=== PATIENT | male | born 1945 | race African-American/Black ===

== ENCOUNTER 2017-01-18 21:15 | Inpatient (IN) ==
[2017-01-18] MEDS ORDERED: THIAMINE INJ 100 MG, FOLIC ACID INJ 1 MG, MAGNESIUM SULF INJ 2 GM, MULTIVITAMIN INJ 10 ... IV ONE (21:47)
--- NOTE | 2017-01-18 21:52 | Emergency Department Note ---
Arrival - Arrival Chief Complaint: Altered Mental Status Stated Complaint: altered mental status ED Nursing Triage Note: pt to room via metro stretcher. family called ems stating pt was altered. pt has had 6 tia's in the past. unsure of baseline. no family. pt following commands, pt aaox2.pupils pinpoint , 0.4 of narcan given per ems. pt is incontinent of bladder upon arrival Mode of Arrival: Stretcher Limitations: Altered Mental Status Source: Family Time Seen by Provider: 01/18/17 21:47 - History of Present Illness HPI Narrative: This 71-year-old black male presents inebriated smelling of alcohol last seen by the family in his normal state of health earlier this morning who now presents confused and lethargic. However, the patient is oriented to person and place but not time. The family called EMS because the patient when he was found this evening was incontinent with slurred speech and laying on the couch confused. Currently he does not appear in any medical distress. Onset (ago): unknown Allergies/Adverse Reactions: Allergies Allergy/AdvReac Type Severity Reaction Status Date / Time No Known Allergies Allergy Unverified 01/18/17 21:56 Review of System - Review of System 12 point system: reviewed and no additional remarkable complaints except as stated - Review of System Constitutional: Present: as per HPI Neurological: Present: as per HPI Medical,Surgical,& Family Hx - Social History Smoking Status: Unknown if ever smoked Frequency of Alcohol Use: Unknown Type of Drug Use: Unknown Exam Physical Examination: GENERAL: Well developed, well nourished disheveled inebriated black male in no acute distress. HEENT: Normocephalic. No trauma. Moist mucous membranes. EOMI. PERRLA. Bilateral bloodshot eyes ENT NML NECK: Supple. No adenopathy. CARDIAC: Regular. No murmurs. Heart rate 110 CHEST: Clear to auscultation. No respiratory distress. O2 sat 97% ABDOMEN: Soft. Nontender. Active bowel sounds. EXTREMITIES: No trauma. Normal ROM. No pedal edema. SKIN: No diaphoresis. No rash. NEURO: Alert. Oriented to person and place. Smells of alcohol. Slurred speech. Motor, sensory, vibratory grossly intact no focal deficits. Vital Signs: Vital Signs Temperature 97.0 F L 01/18/17 21:21 Pulse Rate 108 H 01/18/17 21:21 Respiratory Rate 20 01/18/17 21:21 Blood Pressure 167/94 01/18/17 21:21 O2 Sat by Pulse Oximetry 97 01/18/17 21:21 Course - Reevaluation(s) Reevaluation #1: Discussed with family it is difficult to tell if he has had a stroke or is just inebriated, And for this reason we will admit. - Consultations Consultation #1: Discussed with hospitalist service who will admit for further evaluation treatment. Results - Labs CBC & BMP: 01/18/17 22:03 01/18/17 22:03 Labs: I have reviewed the laboratory and noted the grossly normal results excepting for the blood alcohol of 387. - Impressions EKG: Sinus tachycardia at 105 with normal IL interval and QRS duration. Old inferior ID as well as poor R-wave progression anteriorly. Nonspecific ST changes. No acute injury pattern noted. - Diagnostic Findings Procedure: Chest x-ray: image reviewed by me, report reviewed by me ( Cardiomegaly otherwise negative chest), CT: image reviewed by me, report reviewed by me (Head: Evidence of multiple old injuries but no acute brain injury.) Disposition Clinical Impression: Alcohol intoxication, Altered mental status, History of recurrent TIA Case discussed with: patient's family Disposition: Still a Patient Condition: Guarded Time of Disposition: 23:08
--- NOTE | 2017-01-18 22:10 | XRay Report ---
History is altered mental status Comparison 03/24/2016 The heart is mildly enlarged No congestive failure or confluent infiltrate is seen Impression: Cardiomegaly PROCEDURE INTERPRETED AT [facility] DEPARTMENT OF RADIOLOGY Final Report Signed by: Dr. hSireen Paiz
--- NOTE | 2017-01-18 22:12 | CT Report ---
History is mental status changes, altered LOC Comparison The ventricles are normal in size There are moderate patchy and more confluent white matter low densities present with a more focal small area of chronic cortical loss in the left parietal convexity similar on the prior study. Mild patchy low density in the hdez radiata on the right is also chronic No new areas of hemorrhage or mass effect seen. No acute cortical stroke seen. Impression: Chronic ischemic changes described above The CT exam was performed using one or more of the following dose reduction techniques: Automated exposure control, adjustment of the mA and/or kV according to patient size, or use of iterative reconstruction technique. PROCEDURE INTERPRETED AT [facility] DEPARTMENT OF RADIOLOGY Final Report Signed by: Dr. Shireen Paiz
[2017-01-18 22:23] LABS: Basophils % 0.6 % (0.0-0.8); Eosinophils % 0.4 % (0.00-10.9); Hematocrit 41.1 VOL% (42.0-52.0); Hemoglobin 13.6 GM/DL (14.0-18.0); Immature Granulocytes % 0.3 %; Immature Granulocytes Absolute 0.02 #; Lymphocytes # 1.7 10*3/uL (1.4-4.0); Lymphocytes % 23.7 % (21.2-54.2); Mean Corpuscular HGB Conc 33.1 GM/DL (32-36); Mean Corpuscular Hemoglobin 30 PG (27-34); Mean Corpuscular Volume 89.3 FL (87-102); Mean Platelet Volume 9.4 FL (9.6-12.0); Monocytes # 0.2 10*3/uL (0.11-0.8); Monocytes % 3.3 % (1.7-12.7); Neutrophils % 71.7 % (38.7-73.9); Platelet Count 310 T/CUMM (130-400); Red Cell Distribution Width 15.9 % (9.3-17.3)
[2017-01-18 22:24] LABS: Apearance,Urine Slightly Hazy (Clear); Bacteria,Urine Many /HPF (Few); Bilirubin,Urine Negative (Negative); Blood, Urine Small mg/dL (Negative); Glucose,Urine (UA) Negative (Negative); Hyaline Casts,Urine 4 /LPF (0-3); Ketones,Urine Negative (Negative); Mucus,Urine Occasional /LPF (Occasional); Nitrite,Urine Negative (Negative); Protein,Urine 30 MG/DL; RBC,Urine 2 /HPF (0-4); Squamous Epithelial Cell,Urine Occasional /HPF (0-10); Urine Color Yellow (Yellow); Urine Specific Gravity 1.006 (1.001-1.035); Urine Urobilinogen < 2.0 EU/DL (0.2-1.0); WBC,Urine 39 /HPF (0-6)
[2017-01-18 22:32] LABS: Barbiturates Screen,Urine Negative (Negative); Benzodiazepines Screen,Urine Negative (Negative); Cannabinoid Screen,Urine Negative (Negative); Opiate Screen,Urine Negative (Negative); Phencyclidine Screen,Urine Negative (Negative)
[2017-01-18 22:33] LABS: PT Patient Result 10.2 SECS; Partial Thromboplastin Time 26.4 SECS (0-40)
[2017-01-18 22:41] LABS: Ammonia < 10 UMOL/L (11-32)
[2017-01-18 22:46] LABS: Troponin I Only < 0.015 NG/ML (0.00-0.045)
[2017-01-18 22:47] LABS: Alanine Aminotransferase 16 U/L (16-61); Albumin 3.4 G/DL (3.4-5.0); Alkaline Phosphatase 131 U/L (45-117); Aspartate Amino Transferase 18 U/L (0-37); Bilirubin,Total < 0.39 MG/DL (0.2-1.0); Blood Urea Nitrogen 12 MG/DL (7-18); Calcium 8.6 MG/DL (8.5-10.1); Glucose 129 MG/DL (74-106); Potassium 3.6 MMOL/L (3.5-5.1); Sodium 143 MMOL/L (136-145); Total Protein 8.2 G/DL (6.4-8.3)
[2017-01-18] MEDS ORDERED: LEVOFLOXACIN INJ 750 MG in PREMIX 1 EACH IV STA (22:50)
--- NOTE | 2017-01-18 23:21 | Hospitalist History & Physical ---
Assessment and Plan (1) Alcohol intoxication delirium Status: Acute Current Visit: Yes (2) History of TIAs Status: Acute Current Visit: Yes (3) Urinary tract infection Status: Acute Assessment and plan: Patient is so intoxicated I am reluctant to send him to a regular floor. I need him in the ICU or CCU where he can be closely watched. We will start him on IV antibiotics. Recheck his labs in the morning continue with IV fluids check alcohol level in the morning Current Visit: Yes History of Present Illness Chief complaint: Intoxication/altered mental status History of present illness: Mr. Car Gomez is a 71 year old male who was brought up to our hospital by EMS. Apparently patient has a history of TIA/strokes. The family found him this evening incontinent of urine and feces. He had slurred speech and was lying on the couch confused. He was brought up to our hospital for further evaluation. Patient had alcohol level of 386. When asked him how much he drank he just laughed. Allergies Allergy/AdvReac Type Severity Reaction Status Date / Time No Known Allergies Allergy Unverified 01/18/17 21:56 Medical,Surgical,& Family Hx - Medical History Neurology: History of: TIA - Surgical History Surgical History: noncontributory (Unable to obtain) - Family History Family History: noncontributory (Unable to obtain) - Social History Smoking Status: Unknown if ever smoked Frequency of Alcohol Use: Frequently Type of Drug Use: Unknown ROS unobtainable: due to mental status Exam - Constitutional Vitals: Period Temp Pulse Resp BP Sys/Herzog Pulse Ox Last 24 Hr 97.0 F-97.0 F 108-108 20-20 167-167/94-94 97 General appearance: over weight, disheveled, other (Intoxicated) - Head Head exam: Present: normal inspection - Eye Pupils: Present: constricted - ENT ENT exam: Present: normal exam - Neck Neck exam: Present: normal inspection - Respiratory Respiratory exam: Present: clear to auscultation bilaterally - Cardiovascular Cardiovascular exam: Present: tachycardia - GI/Abdominal GI/Abdominal exam: Present: normal bowel sounds - Extremities Exam Extremities exam: Present: edema - Back Exam Back exam: Present: normal inspection - Neurological Exam Neurological exam: Present: other (Intoxicated with slurred speech) - Skin Skin exam: Present: normal color Results - Labs CBC & BMP: 01/18/17 22:03 01/18/17 22:03
[2017-01-18] MEDS ORDERED: ACETAMINOPHEN 325 MG TABLET PO PRN (23:26)
[2017-01-18] MEDS ORDERED: ONDANSETRON 4 MG/2 ML VIAL IV PRN (23:26)
[2017-01-18] MEDS ORDERED: ALBUTEROL 2.5 MG/3 ML NEB RESP TX PRN (23:26)
[2017-01-18] MEDS ORDERED: SODIUM CHLORIDE 0.9% 1,000 ML IV SCH (23:30)
[2017-01-18] MEDS ORDERED: LEVOFLOXACIN INJ 150 ML IV ONE (23:31)
[2017-01-19] MEDS: PANTOPRAZOLE 40 MG VIAL IV SCH ×2 (00:57→20:45)
--- NOTE | 2017-01-19 05:08 | EKG Report ---
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
[2017-01-19 08:31] LABS: Ammonia < 10 UMOL/L (11-32)
[2017-01-19 08:49] LABS: Alanine Aminotransferase 16 U/L (16-61); Alkaline Phosphatase 124 U/L (45-117); Aspartate Amino Transferase 13 U/L (0-37); Bilirubin,Total < 0.39 MG/DL (0.2-1.0); Blood Urea Nitrogen 11 MG/DL (7-18); Calcium 7.9 MG/DL (8.5-10.1); Glucose 105 MG/DL (74-106); Osmolality,Calculated 286.7 MOS/KG (273-304); Potassium 3.7 MMOL/L (3.5-5.1); Sodium 145 MMOL/L (136-145); Total Protein 7.3 G/DL (6.4-8.3)
[2017-01-19] MEDS ORDERED: hydrALAZINE 20 MG/1 ML VIAL IV PRN ×2 (09:08→15:48)
--- NOTE | 2017-01-19 09:35 | Hospitalist Progress Note ---
Assessment and Plan (1) Alcohol intoxication delirium Status: Acute Assessment and plan: IV banana bag, librium PO QID, vitamin supplement, education on quit drinking. Current Visit: Yes (2) Urinary tract infection Status: Acute Assessment and plan: Continue IV levaquin Current Visit: Yes (3) Parkinson disease Status: Acute Assessment and plan: Resume home meds Current Visit: Yes (4) Cardiomegaly Status: Acute Assessment and plan: Echo today. Resume home med coreg Current Visit: Yes (5) Hypertension Status: Acute Assessment and plan: Add norvasc and lisinopril PO. Add hydralazine IVpush PRN Current Visit: Yes Hospitalist: Subjective Interval history: No overnight acute event. Feeling better but still confused. Can eat. Left hand and left forearm resting tremor. No fever, headache, chest pain or abd pain reported. Based on reviewing home meds, pt is non compliant to his medications. His last drink was 2 days ago with 1/2 pint votka. Exam - Constitutional Vitals: Period Temp Pulse Resp BP Sys/Herzog Pulse Ox Last 24 Hr 96.7 F-97.0 F 97-108 12-20 115-167/77-99 92-100 Exam: GENERAL: NAD, Awake, alert and oriented to people. HEENT: Pupils equally round and reactive to light, conjunctivae clear. Dry oral mucosa. Normal lips, teeth and gums. NECK: Supple without mass. HEART: RRR, no murmur. CHEST: Normal shape, good air movement, no retractions. CV: RRR, no murmurs, 2+ peripheral pulses LUNGS: Clear to auscultation; no rales, rhonchi, or wheezes. ABDOMEN: Soft, nontender, and no hepatosplenomegaly. SKIN: No rash or edema. LYMPH: No anterior or posterior cervical, or supraclavicular lymphadenopathy. NEURO: Resting tremor on left hand. Results - Labs CBC & BMP: 01/18/17 22:03 01/19/17 08:10 - Diagnostic Findings Procedure: Chest x-ray: report reviewed by me (Cardiomegaly)
[2017-01-19] MEDS: amLODIPine 10 MG TABLET PO SCH (09:38)
[2017-01-19] MEDS: CARVEDILOL 25 MG TABLET PO SCH ×2 (09:38→20:45)
[2017-01-19] MEDS: LISINOPRIL 20 MG TABLET PO SCH (09:38)
[2017-01-19] MEDS: ENOXAPARIN 40 MG/0.4 ML SYRINGE SUBCUT SCH (09:38)
[2017-01-19] MEDS: CLOPIDOGREL 75 MG TABLET PO SCH (09:38)
[2017-01-19] MEDS: THIAMINE 100 MG TABLET PO SCH (10:16)
[2017-01-19] MEDS: FOLIC ACID 1 MG TABLET PO SCH (10:16)
[2017-01-19] MEDS: MULTIVITAMIN (CENTRUM) TABLET PO SCH (10:16)
[2017-01-19] MEDS: THIAMINE INJ 100 MG, FOLIC ACID INJ 1 MG, MULTIVITAMIN INJ 10 ML in SODIUM CHLORIDE 0.9... IV SCH (10:47)
[2017-01-19] MEDS: chlordiazePOXIDE 10 MG CAPSULE PO SCH ×3 (13:37→20:45)
[2017-01-19] MEDS: CARBIDOPA/LEVODOPA 25-250 MG TABLET PO SCH ×2 (15:20→20:45)
[2017-01-19] MEDS: LORazepam 2 MG/1 ML VIAL IV PRN (15:25)
--- NOTE | 2017-01-19 18:24 | ECHO Report ---
Car Gomez Teddy Exam Date: 01/19/2017 10:04 Referring Physician: Technologist: Mabel Dimas Age: 71 Ht (in): 72 Wt (lb): 199 Gender: M Exam Location: [facility] Echo Indications: possible heart failure, alcohol intoxication delirium, UTI, Hx. Of TIAs BP: 167 / 99 HR: 111 Rhythm: Sinus Technical Quality: Good IMPRESSIONS Severely increased septal wall thickness. Moderate concentric left ventricular hypertrophy with diastolic dysfunction. Left ventricular ejection fraction is estimated at > 65%. 1+ increased right atrial size. Left atrial size. Mild mitral valve regurgitation. Mild aortic valve sclerosis without stenosis or regurgitation. Trace to mild tricuspid valve regurgitation. Tricuspid regurgitation velocities suggest a PAP of 15.7 mmHg + RAP. MEASUREMENTS (Male / Female) Normal Values 2D ECHO LV Diastolic Diameter PLAX 3.7 cm 4.2 - 5.9 / 3.9 - 5.3 cm LV Systolic Diameter PLAX 2.6 cm LV Fractional Shortening PLAX 29.6 % IVS Diastolic Thickness 1.9 cm 0.6 - 1.0 / 0.6 - 0.9 cm LVPW Diastolic Thickness 1.6 cm 0.6 - 1.0 / 0.6 - 0.9 cm RV Internal Dim ED PLAX 3.3 cm Aortic Root Diameter 3.1 cm LA Systolic Diameter LX 3.7 cm 3.0 - 4.0 / 2.7 - 3.8 cm DOPPLER TR Peak Velocity 198.0 cm/s TR Peak Gradient 15.7 mmHg FINDINGS Left Ventricle Severely increased septal wall thickness. Moderate concentric left ventricular hypertrophy with diastolic dysfunction. Left ventricular ejection fraction is estimated at > 65%. Right Ventricle normal right ventricular size. Right Atrium 1+ increased right atrial size. Left Atrium 2+ incr. left atrial size. Mitral Valve Mild mitral valve sclerosis. Mild mitral valve regurgitation. Aortic Valve Mild aortic valve sclerosis without stenosis or regurgitation. Tricuspid Valve Morphologically normal tricuspid valve. Trace to mild tricuspid valve regurgitation. Tricuspid regurgitation velocities suggest a PAP of 15.7 mmHg + RAP. Pulmonic Valve Morphologically normal pulmonic valve. Pericardium No pericardial effusion. Aorta Normal size aortic root and proximal ascending aorta. Stephen Nye MD (Electronically Signed) Final Date: 19 January 2017 18:22
[2017-01-19] MEDS: LURASIDONE 40 MG TABLET PO SCH (20:44)
[2017-01-19] MEDS: ATORVASTATIN 80 MG TABLET PO SCH (20:45)
[2017-01-19] MEDS: LEVOFLOXACIN INJ 500 MG in PREMIX 1 EACH IV SCH (20:53)
[2017-01-20 06:12] LABS: Basophils % 0.5 % (0.0-0.8); Eosinophils # 0.1 10*3/uL (0.0-0.87); Hematocrit 33.8 VOL% (42.0-52.0); Immature Granulocytes % 0.5 %; Immature Granulocytes Absolute 0.03 #; Lymphocytes # 1.1 10*3/uL (1.4-4.0); Lymphocytes % 17.7 % (21.2-54.2); Mean Corpuscular HGB Conc 32.8 GM/DL (32-36); Mean Corpuscular Hemoglobin 30 PG (27-34); Mean Corpuscular Volume 90.4 FL (87-102); Mean Platelet Volume 9.9 FL (9.6-12.0); Monocytes # 0.6 10*3/uL (0.11-0.8); Monocytes % 9.7 % (1.7-12.7); Neutrophils # 4.5 10*3/uL (1.4-7.4); Neutrophils % 70.6 % (38.7-73.9); Red Blood Count 3.74 MC/CUMM (3.8-5.5); White Blood Count 6.3 T/CUMM (4-12)
[2017-01-20 06:14] LABS: Hemoglobin 11.1 GM/DL (14.0-18.0); Platelet Count 213 T/CUMM (130-400)
[2017-01-20 06:32] LABS: Alanine Aminotransferase < 9 U/L (16-61); Albumin 2.6 G/DL (3.4-5.0); Alkaline Phosphatase 107 U/L (45-117); Aspartate Amino Transferase 10 U/L (0-37); Blood Urea Nitrogen 12 MG/DL (7-18); Calcium 7.5 MG/DL (8.5-10.1); Glucose 123 MG/DL (74-106); Osmolality,Calculated 283.1 MOS/KG (273-304); Potassium 3.8 MMOL/L (3.5-5.1); Sodium 142 MMOL/L (136-145); Total Protein 6.5 G/DL (6.4-8.3)
[2017-01-20] MEDS: LISINOPRIL 20 MG TABLET PO SCH (08:17)
[2017-01-20] MEDS: chlordiazePOXIDE 10 MG CAPSULE PO SCH ×4 (08:17→21:25)
[2017-01-20] MEDS: FOLIC ACID 1 MG TABLET PO SCH (08:17)
[2017-01-20] MEDS: CLOPIDOGREL 75 MG TABLET PO SCH (08:17)
[2017-01-20] MEDS: CARVEDILOL 25 MG TABLET PO SCH ×2 (08:17→21:25)
[2017-01-20] MEDS: amLODIPine 10 MG TABLET PO SCH (08:17)
[2017-01-20] MEDS: ENOXAPARIN 40 MG/0.4 ML SYRINGE SUBCUT SCH (08:17)
[2017-01-20] MEDS: THIAMINE 100 MG TABLET PO SCH (08:17)
[2017-01-20] MEDS: MULTIVITAMIN (CENTRUM) TABLET PO SCH (08:17)
[2017-01-20] MEDS: CARBIDOPA/LEVODOPA 25-250 MG TABLET PO SCH ×3 (08:19→21:25)
[2017-01-20] MEDS: THIAMINE INJ 100 MG, FOLIC ACID INJ 1 MG, MULTIVITAMIN INJ 10 ML in SODIUM CHLORIDE 0.9... IV SCH (10:30)
--- NOTE | 2017-01-20 17:37 | Hospitalist Progress Note ---
Assessment and Plan (1) Alcohol intoxication delirium Status: Acute Current Visit: Yes (2) Urinary tract infection Status: Acute Current Visit: Yes (3) Parkinson disease Status: Acute Current Visit: Yes (4) Hypertension Status: Acute Current Visit: Yes Hospitalist: Subjective Interval history: No acute events overnight. Mental status is improved. He reports that he plans to stop drinking. Possible discharge tomorrow. Exam - Constitutional Vitals: Period Temp Pulse Resp BP Sys/Herzog Pulse Ox Last 24 Hr 97.7 F-98.9 F 83-103 17-20 152-168/77-87 94-98 General appearance: over weight - Head Head exam: Present: normocephalic, atraumatic - Eye Eye exam: Present: EOMI Pupils: Present: MINGO - ENT ENT exam: Present: normal exam - Neck Neck exam: Present: normal inspection - Respiratory Respiratory exam: Present: clear to auscultation bilaterally. Absent: rhonchi, wheezes - Cardiovascular Cardiovascular exam: Present: regular rate and rhythm - GI/Abdominal GI/Abdominal exam: Present: normal bowel sounds, soft - Extremities Exam Extremities exam: Present: normal inspection - Back Exam Back exam: Present: normal inspection - Neurological Exam Neurological exam: Present: alert, oriented X3 - Psychiatric Psychiatric exam: Present: normal affect, normal mood - Skin Skin exam: Present: warm, intact Results - Labs CBC & BMP: 01/20/17 05:15 01/20/17 05:15
[2017-01-20] MEDS: PANTOPRAZOLE 40 MG VIAL IV SCH (21:24)
[2017-01-20] MEDS: ATORVASTATIN 80 MG TABLET PO SCH (21:25)
[2017-01-20] MEDS: LEVOFLOXACIN INJ 500 MG in PREMIX 1 EACH IV SCH (21:25)
[2017-01-20] MEDS: LURASIDONE 40 MG TABLET PO SCH (21:27)
[2017-01-21] MEDS: amLODIPine 10 MG TABLET PO SCH (09:42)
[2017-01-21] MEDS: THIAMINE 100 MG TABLET PO SCH (09:42)
[2017-01-21] MEDS: chlordiazePOXIDE 10 MG CAPSULE PO SCH ×4 (09:42→20:40)
[2017-01-21] MEDS: ENOXAPARIN 40 MG/0.4 ML SYRINGE SUBCUT SCH (09:42)
[2017-01-21] MEDS: FOLIC ACID 1 MG TABLET PO SCH (09:43)
[2017-01-21] MEDS: LISINOPRIL 20 MG TABLET PO SCH (09:43)
[2017-01-21] MEDS: CLOPIDOGREL 75 MG TABLET PO SCH (09:43)
[2017-01-21] MEDS: CARVEDILOL 25 MG TABLET PO SCH ×2 (09:43→20:40)
[2017-01-21] MEDS: CARBIDOPA/LEVODOPA 25-250 MG TABLET PO SCH ×3 (09:43→20:40)
[2017-01-21] MEDS: MULTIVITAMIN (CENTRUM) TABLET PO SCH (09:43)
[2017-01-21] MEDS: THIAMINE INJ 100 MG, FOLIC ACID INJ 1 MG, MULTIVITAMIN INJ 10 ML in SODIUM CHLORIDE 0.9... IV SCH (11:24)
--- NOTE | 2017-01-21 14:02 | Hospitalist Progress Note ---
Assessment and Plan (1) Alcohol intoxication delirium Status: Acute Current Visit: Yes (2) Urinary tract infection Status: Acute Assessment and plan: On levaquin Urine culture grew Klebsiella oxytoca Current Visit: Yes (3) Parkinson disease Status: Acute Current Visit: Yes (4) Hypertension Status: Acute Assessment and plan: Home medications Current Visit: Yes Hospitalist: Subjective Interval history: No acute events overnight. Patient still intermittently confused. Oriented to person and place only. Exam - Constitutional Vitals: Period Temp Pulse Resp BP Sys/Herzog Pulse Ox Last 24 Hr 97.4 F-98.9 F 82-90 17-20 148-174/79-95 94-98 General appearance: over weight - Head Head exam: Present: normocephalic, atraumatic - Eye Eye exam: Present: EOMI Pupils: Present: MINGO - ENT ENT exam: Present: normal exam - Neck Neck exam: Present: normal inspection - Respiratory Respiratory exam: Present: clear to auscultation bilaterally. Absent: wheezes - Cardiovascular Cardiovascular exam: Present: regular rate and rhythm - GI/Abdominal GI/Abdominal exam: Present: normal bowel sounds, soft. Absent: tenderness, rebound - Extremities Exam Extremities exam: Present: normal inspection - Back Exam Back exam: Present: normal inspection - Neurological Exam Neurological exam: Present: alert - Psychiatric Psychiatric exam: Present: normal affect, normal mood - Skin Skin exam: Present: warm, intact Results - Labs CBC & BMP: 01/20/17 05:15 01/20/17 05:15
[2017-01-21] MEDS: LORazepam 2 MG/1 ML VIAL IV PRN (20:39)
[2017-01-21] MEDS: LEVOFLOXACIN INJ 500 MG in PREMIX 1 EACH IV SCH (20:40)
[2017-01-21] MEDS: LURASIDONE 40 MG TABLET PO SCH (20:40)
[2017-01-21] MEDS: ATORVASTATIN 80 MG TABLET PO SCH (20:40)
[2017-01-21] MEDS: PANTOPRAZOLE 40 MG VIAL IV SCH (20:43)
[2017-01-22] MEDS: ENOXAPARIN 40 MG/0.4 ML SYRINGE SUBCUT SCH (10:03)
[2017-01-22] MEDS: CARBIDOPA/LEVODOPA 25-250 MG TABLET PO SCH ×3 (10:04→20:45)
[2017-01-22] MEDS: FOLIC ACID 1 MG TABLET PO SCH (10:04)
[2017-01-22] MEDS: chlordiazePOXIDE 10 MG CAPSULE PO SCH ×3 (10:04→20:45)
[2017-01-22] MEDS: MULTIVITAMIN (CENTRUM) TABLET PO SCH (10:04)
[2017-01-22] MEDS: THIAMINE 100 MG TABLET PO SCH (10:05)
[2017-01-22] MEDS: LISINOPRIL 20 MG TABLET PO SCH (10:05)
[2017-01-22] MEDS: amLODIPine 10 MG TABLET PO SCH (10:05)
[2017-01-22] MEDS: CARVEDILOL 25 MG TABLET PO SCH ×2 (10:05→20:45)
[2017-01-22] MEDS: CLOPIDOGREL 75 MG TABLET PO SCH (10:06)
[2017-01-22] MEDS: THIAMINE INJ 100 MG, FOLIC ACID INJ 1 MG, MULTIVITAMIN INJ 10 ML in SODIUM CHLORIDE 0.9... IV SCH (12:54)
--- NOTE | 2017-01-22 16:28 | Hospitalist Progress Note ---
Assessment and Plan (1) Alcohol intoxication delirium Status: Acute Current Visit: Yes (2) Urinary tract infection Status: Acute Assessment and plan: On levaquin Urine culture grew Klebsiella oxytoca Current Visit: Yes (3) Parkinson disease Status: Acute Current Visit: Yes (4) Hypertension Status: Acute Assessment and plan: Home medications Current Visit: Yes Hospitalist: Subjective Interval history: No acute events overnight. Patient oriented to person and place. Family member in room feels that he is close to his baseline. Intermittent confusion improving , no sign of dts. Possible discharge tomorrow. Exam - Constitutional Vitals: Period Temp Pulse Resp BP Sys/Herzog Pulse Ox Last 24 Hr 97 F-98.2 F 70-93 18-20 118-152/70-77 93-97 General appearance: over weight - Head Head exam: Present: normocephalic, atraumatic - Eye Eye exam: Present: EOMI Pupils: Present: MINGO - ENT ENT exam: Present: normal exam - Neck Neck exam: Present: normal inspection - Respiratory Respiratory exam: Present: clear to auscultation bilaterally. Absent: rhonchi, wheezes - Cardiovascular Cardiovascular exam: Present: regular rate and rhythm - GI/Abdominal GI/Abdominal exam: Present: normal bowel sounds, soft. Absent: tenderness, rebound - Extremities Exam Extremities exam: Present: normal inspection - Back Exam Back exam: Present: normal inspection - Neurological Exam Neurological exam: Present: alert - Psychiatric Psychiatric exam: Present: normal affect, normal mood - Skin Skin exam: Present: warm, intact Results - Labs CBC & BMP: 01/20/17 05:15 01/20/17 05:15
[2017-01-22] MEDS: PANTOPRAZOLE 40 MG VIAL IV SCH (20:45)
[2017-01-22] MEDS: LORazepam 2 MG/1 ML VIAL IV PRN (20:45)
[2017-01-22] MEDS: LURASIDONE 40 MG TABLET PO SCH (20:45)
[2017-01-22] MEDS: ATORVASTATIN 80 MG TABLET PO SCH (20:45)
[2017-01-22] MEDS: LEVOFLOXACIN INJ 500 MG in PREMIX 1 EACH IV SCH (20:45)
[2017-01-23] MEDS: THIAMINE 100 MG TABLET PO SCH (09:17)
[2017-01-23] MEDS: chlordiazePOXIDE 10 MG CAPSULE PO SCH ×2 (09:17→22:50)
[2017-01-23] MEDS: CARVEDILOL 25 MG TABLET PO SCH ×2 (09:17→22:50)
[2017-01-23] MEDS: amLODIPine 10 MG TABLET PO SCH (09:17)
[2017-01-23] MEDS: CLOPIDOGREL 75 MG TABLET PO SCH (09:17)
[2017-01-23] MEDS: CARBIDOPA/LEVODOPA 25-250 MG TABLET PO SCH ×3 (09:17→22:51)
[2017-01-23] MEDS: MULTIVITAMIN (CENTRUM) TABLET PO SCH (09:17)
[2017-01-23] MEDS: FOLIC ACID 1 MG TABLET PO SCH (09:17)
[2017-01-23] MEDS: ENOXAPARIN 40 MG/0.4 ML SYRINGE SUBCUT SCH (09:18)
[2017-01-23] MEDS: LISINOPRIL 20 MG TABLET PO SCH (15:03)
--- NOTE | 2017-01-23 16:50 | Hospitalist Progress Note ---
Assessment and Plan (1) Alcohol intoxication delirium Status: Acute Current Visit: Yes (2) Urinary tract infection Status: Acute Assessment and plan: On levaquin Urine culture grew Klebsiella oxytoca Current Visit: Yes (3) Parkinson disease Status: Acute Current Visit: Yes (4) Hypertension Status: Acute Assessment and plan: Home medications Current Visit: Yes Hospitalist: Subjective Interval history: No acute events overnight. Oriented to person only this morning. No family present in room today. PT/OT to evaluate Exam - Constitutional Vitals: Period Temp Pulse Resp BP Sys/Herzog Pulse Ox Last 24 Hr 97.3 F-99.1 F 78-84 14-20 133-147/76-80 95-99 General appearance: over weight - Head Head exam: Present: normocephalic, atraumatic - ENT ENT exam: Present: normal exam - Neck Neck exam: Present: normal inspection - Respiratory Respiratory exam: Present: clear to auscultation bilaterally. Absent: wheezes - Cardiovascular Cardiovascular exam: Present: regular rate and rhythm - GI/Abdominal GI/Abdominal exam: Present: normal bowel sounds, soft. Absent: tenderness - Extremities Exam Extremities exam: Present: normal inspection - Back Exam Back exam: Present: normal inspection - Neurological Exam Neurological exam: Present: alert, oriented X3 - Psychiatric Psychiatric exam: Present: normal affect, normal mood - Skin Skin exam: Present: warm, intact Results - Labs CBC & BMP: 01/20/17 05:15 01/20/17 05:15
[2017-01-23] MEDS: LEVOFLOXACIN INJ 500 MG in PREMIX 1 EACH IV SCH (22:46)
[2017-01-23] MEDS: PANTOPRAZOLE 40 MG VIAL IV SCH (22:48)
[2017-01-23] MEDS: LURASIDONE 40 MG TABLET PO SCH (22:50)
[2017-01-23] MEDS: ATORVASTATIN 80 MG TABLET PO SCH (22:50)
[2017-01-24] MEDS: amLODIPine 10 MG TABLET PO SCH (08:40)
[2017-01-24] MEDS: THIAMINE 100 MG TABLET PO SCH (08:40)
[2017-01-24] MEDS: chlordiazePOXIDE 10 MG CAPSULE PO SCH ×2 (08:40→21:38)
[2017-01-24] MEDS: CLOPIDOGREL 75 MG TABLET PO SCH (08:40)
[2017-01-24] MEDS: ENOXAPARIN 40 MG/0.4 ML SYRINGE SUBCUT SCH (08:40)
[2017-01-24] MEDS: CARBIDOPA/LEVODOPA 25-250 MG TABLET PO SCH ×3 (08:40→21:38)
[2017-01-24] MEDS: CARVEDILOL 25 MG TABLET PO SCH ×2 (08:40→21:38)
[2017-01-24] MEDS: LISINOPRIL 20 MG TABLET PO SCH (08:40)
[2017-01-24] MEDS: MULTIVITAMIN (CENTRUM) TABLET PO SCH (08:40)
[2017-01-24] MEDS: FOLIC ACID 1 MG TABLET PO SCH (08:40)
[2017-01-24] MEDS ORDERED: TUBERCULIN SKIN TEST 0.1 ML SYRINGE INTRADERM ONE (10:30)
--- NOTE | 2017-01-24 12:35 | Case Mgmt Physician Query Form ---
TB Signs and Symptoms Screening ([place]) INSTRUCTIONS: To be completed annually on residents/staff with a significant Tuberculin Skin Test (TST) upon admission/hire or a prior significant TST. To be completed on all staff at hire. Please respond to each listed symptom with an (X) in either the "YES" or "NO" box. Do you currently have any of the following symptoms: YES NO ( ) ( x) A cough If yes, is it: ( ) Productive ( ) Non- productive ( ) ( x) Hemoptysis (spitting up blood) ( ) ( x) Chest pains ( ) ( x) Weight Loss ( ) ( x) Fever ( ) ( x) Night Sweats ( ) ( x) Weakness ( ) ( x) Loss of Appetite ( ) ( x) Difficulty Breathing If you answered YES" to any of the above questions, how long have symptoms been present? Comments: NATASHA
--- NOTE | 2017-01-24 15:34 | Hospitalist Progress Note ---
Assessment and Plan (1) Alcohol intoxication delirium Status: Acute Current Visit: Yes (2) Urinary tract infection Status: Acute Assessment and plan: Completed a course of levaquin Urine culture grew Klebsiella oxytoca Current Visit: Yes (3) Parkinson disease Status: Acute Current Visit: Yes (4) Hypertension Status: Acute Assessment and plan: Home medications Current Visit: Yes Hospitalist: Subjective Interval history: No acute events overnight. Patient is at his mental baseline per family members. Working with PT/OT. Will need swing bed placement for rehab. Exam - Constitutional Vitals: Period Temp Pulse Resp BP Sys/Herzog Pulse Ox Last 24 Hr 98.2 F-98.9 F 77-106 18-20 126-170/71-92 96-99 General appearance: over weight - Head Head exam: Present: normocephalic, atraumatic - Eye Eye exam: Present: EOMI Pupils: Present: MINGO - ENT ENT exam: Present: normal exam - Neck Neck exam: Present: normal inspection - Respiratory Respiratory exam: Present: clear to auscultation bilaterally. Absent: rhonchi, wheezes - Cardiovascular Cardiovascular exam: Present: regular rate and rhythm - GI/Abdominal GI/Abdominal exam: Present: normal bowel sounds, soft. Absent: tenderness, rebound - Extremities Exam Extremities exam: Present: normal inspection - Back Exam Back exam: Present: normal inspection - Neurological Exam Neurological exam: Present: alert - Psychiatric Psychiatric exam: Present: normal affect, normal mood - Skin Skin exam: Present: warm, intact Results - Labs CBC & BMP: 01/20/17 05:15 01/20/17 05:15
[2017-01-24] MEDS: PANTOPRAZOLE 40 MG VIAL IV SCH (21:35)
[2017-01-24] MEDS: ATORVASTATIN 80 MG TABLET PO SCH (21:38)
[2017-01-24] MEDS: LURASIDONE 40 MG TABLET PO SCH (21:38)
--- NOTE | 2017-01-25 11:10 | Discharge Summary ---
Hospital Course - Hospital Course Hospital Course: Mr. Car Gomez is a 71 year old male who was brought by EMS. Apparently patient has a history of TIA/strokes. The family found him this evening incontinent of urine and feces. He had slurred speech and was lying on the couch confused. Patient had alcohol level of 386. When asked him how much he drank he just laughed. Patient was admitted to the hospitalist service for further evaluation. He was started on a banana bag daily and monitored closely. Patient with intermittent confusion which gradually improved. He is now at his baseline mental status per his family. He has now reached maximal benefit of inpatient stay and will be discharged to swing bed for rehab. - Time spent with patient Time with patient DS: Less than 30 minutes (25) Diagnosis - Discharge Diagnosis (1) Alcohol intoxication delirium Status: Resolved (2) Urinary tract infection Status: Resolved (3) Parkinson disease Status: Chronic (4) Hypertension Status: Chronic Discharge Plan - Discharge Data Disposition: Disch/Xfer-Ip Rehab Fac Condition at Discharge: Stable Discharge Diet: low salt diet Activity: as per physical therapy Hygiene: no restrictions Weight Bearing at Discharge: weight bear as tolerated Contact your physician if you experience:: fever over 101, Shortness of breath - Discharge Medications New Lisinopril [Prinivil] 20 mg PO DAILY #30 tablet Thiamine Tab [Vitamin B1 Tab] 100 mg PO DAILY tablet chlordiazePOXIDE [Librium] 10 mg PO BID #21 capsule Folic Acid Tab 1 mg PO DAILY #0 tablet Multivitamin (Centrum) [Centrum Tab] 1 tablet PO DAILY tablet Continue Clopidogrel [Plavix] 75 mg PO DAILY Carbidopa/Levodopa 25-250 [Sinemet 25-250] 1 tablet PO TID Atorvastatin [Lipitor] 80 mg PO BEDTIME Lurasidone [Latuda] 40 mg PO BEDTIME Carvedilol [Coreg] 25 mg PO BID - Follow Up or Referral - Forms/Instructions Exam - Constitutional Vitals: Period Temp Pulse Resp BP Sys/Herzog Pulse Ox Last 24 Hr 97 F-98.8 F 68-81 20-20 103-145/61-78 92-98 General appearance: over weight - Head Head exam: Present: normocephalic, atraumatic - Eye Eye exam: Present: EOMI Pupils: Present: MINGO - ENT ENT exam: Present: normal exam - Neck Neck exam: Present: normal inspection - Respiratory Respiratory exam: Present: clear to auscultation bilaterally - Cardiovascular Cardiovascular exam: Present: regular rate and rhythm - GI/Abdominal GI/Abdominal exam: Present: normal bowel sounds, soft. Absent: tenderness, rebound - Extremities Exam Extremities exam: Present: normal inspection - Back Exam Back exam: Present: normal inspection - Neurological Exam Neurological exam: Present: other (oriented to person and place) - Psychiatric Psychiatric exam: Present: normal affect, normal mood - Skin Skin exam: Present: warm, intact DS: Provider Date of admission: 01/18/17 23:26 Primary care physician: . No PCP Attending physician on admission: Cuate Lofton MD Consults: 01/23/17 07:56 Consult to Physical Therapy [CONS] Routine Reason for Physical Therapy: Evaluate and Treat Discharging clinician: Rishabh Dudley MD
[2017-01-25] MEDS: amLODIPine 10 MG TABLET PO SCH (11:32)
[2017-01-25] MEDS: LISINOPRIL 20 MG TABLET PO SCH (11:32)
[2017-01-25] MEDS: FOLIC ACID 1 MG TABLET PO SCH (11:32)
[2017-01-25] MEDS: chlordiazePOXIDE 10 MG CAPSULE PO SCH (11:33)
[2017-01-25] MEDS: MULTIVITAMIN (CENTRUM) TABLET PO SCH (11:33)
[2017-01-25] MEDS: CARBIDOPA/LEVODOPA 25-250 MG TABLET PO SCH (11:33)
[2017-01-25] MEDS: CARVEDILOL 25 MG TABLET PO SCH (11:33)
[2017-01-25] MEDS: CLOPIDOGREL 75 MG TABLET PO SCH (11:33)
[2017-01-25] MEDS: ENOXAPARIN 40 MG/0.4 ML SYRINGE SUBCUT SCH (11:34)
[2017-01-25] MEDS: THIAMINE 100 MG TABLET PO SCH (11:34)
[2017-01-25 12:45] VITALS: BP 153/76
== END 2017-01-25 14:58 | DRG 897 ==
LOC: EDUNIT# → EDBD → N.ED 21:15 → N.EDINP 23:26 → SUATTDRO 23:26 → N.ICU 23:44 → N.2E 01-19 18:21
PROVIDERS: ADMIT Internal Medicine; ATTEND Internal Medicine

== ENCOUNTER 2018-07-27 05:37 | Inpatient (IN) ==
[2018-07-27] MEDS ORDERED: SODIUM CHLORIDE 0.9% 1,000 ML IV STA ×2 (06:30→07:30)
[2018-07-27 06:36] LABS: Lactic Acid 4.5 MMOL/L (0.4-2.0)
[2018-07-27 06:39] LABS: Albumin 2.8 G/DL (3.4-5.0); Basophils % 0.2 % (0.0-0.8); Bilirubin,Total 1.1 MG/DL (0.2-1.0); Calcium 8.1 MG/DL (8.5-10.1); Hematocrit 36.9 VOL% (42.0-52.0); Hemoglobin 11.9 GM/DL (14.0-18.0); Immature Granulocytes % 1.3 %; Immature Granulocytes Absolute 0.17 #; Lymphocytes # 0.4 10*3/uL (1.4-4.0); Lymphocytes % 2.9 % (21.2-54.2); Mean Corpuscular HGB Conc 32.2 GM/DL (32-36); Mean Corpuscular Hemoglobin 31 PG (27-34); Mean Corpuscular Volume 96.3 FL (87-102); Mean Platelet Volume 10.9 FL (9.6-12.0); Monocytes # 0.2 10*3/uL (0.11-0.8); Monocytes % 1.3 % (1.7-12.7); Neutrophils # 11.9 10*3/uL (1.4-7.4); Neutrophils % 94.3 % (38.7-73.9); Platelet Count 122 T/CUMM (130-400); Potassium 3.4 MMOL/L (3.5-5.1); Red Blood Count 3.83 MC/CUMM (3.8-5.5); Red Cell Distribution Width 14.3 % (9.3-17.3); Total Protein 6.7 G/DL (6.4-8.3); White Blood Count 12.7 T/CUMM (4-12)
[2018-07-27 06:55] LABS: INR 1.3; PT Patient Result 14.3 SECS; Partial Thromboplastin Time 27.5 SECS (0-40)
[2018-07-27 07:13] LABS: Bacteria,Urine Occasional /HPF (Few); Blood, Urine Large mg/dL (Negative); Glucose,Urine (UA) Negative (Negative); Hyaline Casts,Urine 11 /LPF (0-3); Ketones,Urine 5 mg/dL (Negative); Mucus,Urine Occasional /LPF (Occasional); Nitrite,Urine Negative (Negative); Protein,Urine Negative; RBC,Urine 16 /HPF (0-4); Squamous Epithelial Cell,Urine Occasional /HPF (0-10); Urine Specific Gravity 1.019 (1.001-1.035); WBC,Urine 29 /HPF (0-6)
[2018-07-27 07:15] LABS: Apearance,Urine Slightly Hazy (Clear); Bilirubin,Urine Small mg/dL (Negative); Urine Color Yellow (Yellow)
[2018-07-27 07:26] LABS: Lymphocytes 11 % (20-55); Metamyelocytes 4 %; Platelet Estimate Decreased; Polychromasia Slight; Segmented Neutrophils 79 % (50-85); Total Cells Counted 100
[2018-07-27] MEDS ORDERED: PIPERACILLIN/TAZOBACTAM 3,375 MG in SODIUM CHLORIDE 0.9% 100 ML IV STA (07:31)
[2018-07-27] MEDS ORDERED: VANCOMYCIN INJ 1,250 MG in SODIUM CHLORIDE 0.9% 250 ML IV SCH (09:00)
[2018-07-27] MEDS ORDERED: ONDANSETRON 4 MG/2 ML VIAL IV PRN (09:02)
[2018-07-27] MEDS ORDERED: PROMETHAZINE 25 MG/1 ML VIAL IM PRN (09:02)
[2018-07-27] MEDS ORDERED: VANCOMYCIN INJ 1,250 MG in SODIUM CHLORIDE 0.9% 250 ML IV PRN (10:11)
[2018-07-27] MEDS ORDERED: VANCOMYCIN INJ 1,500 MG in SODIUM CHLORIDE 0.9% 500 ML IV ONE (11:00)
[2018-07-27] MEDS ORDERED: SODIUM CHLORIDE 0.9% 1,000 ML IV ONE (11:43)
[2018-07-27] MEDS: HEPARIN 5,000 UNIT/1 ML VIAL SUBCUT SCH ×2 (12:23→17:11)
[2018-07-27] MEDS: SODIUM CHLORIDE 0.9% 1,000 ML IV SCH ×2 (12:33→21:08)
[2018-07-27] MEDS: CARBIDOPA/LEVODOPA 25-250 MG TABLET PO SCH ×2 (14:41→21:53)
[2018-07-27] MEDS: PIPERACILLIN/TAZOBACTAM 3,375 MG in SODIUM CHLORIDE 0.9% 100 ML IV SCH (16:48)
[2018-07-27] MEDS: LURASIDONE 40 MG TABLET PO SCH (16:52)
[2018-07-27] MEDS: ATORVASTATIN 80 MG TABLET PO SCH (21:47)
[2018-07-27] MEDS: AMANTADINE 100 MG CAPSULE PO SCH (21:52)
[2018-07-28] MEDS: PIPERACILLIN/TAZOBACTAM 3,375 MG in SODIUM CHLORIDE 0.9% 100 ML IV SCH ×3 (01:00→16:24)
[2018-07-28] MEDS: HEPARIN 5,000 UNIT/1 ML VIAL SUBCUT SCH ×3 (04:23→17:50)
[2018-07-28] MEDS: SODIUM CHLORIDE 0.9% 1,000 ML IV SCH ×2 (04:23→12:02)
[2018-07-28 05:36] LABS: Basophils % 0.3 % (0.0-0.8); Eosinophils % 0.1 % (0.00-10.9); Hematocrit 31.6 VOL% (42.0-52.0); Hemoglobin 10.3 GM/DL (14.0-18.0); Immature Granulocytes % 11.6 %; Immature Granulocytes Absolute 1.71 #; Lymphocytes # 1.2 10*3/uL (1.4-4.0); Lymphocytes % 8.1 % (21.2-54.2); Mean Corpuscular HGB Conc 32.6 GM/DL (32-36); Mean Corpuscular Hemoglobin 31 PG (27-34); Mean Corpuscular Volume 94.9 FL (87-102); Neutrophils # 10.7 10*3/uL (1.4-7.4); Neutrophils % 72.9 % (38.7-73.9); Platelet Count 100 T/CUMM (130-400); Red Blood Count 3.33 MC/CUMM (3.8-5.5); Red Cell Distribution Width 14.4 % (9.3-17.3); White Blood Count 14.7 T/CUMM (4-12)
[2018-07-28 06:00] LABS: Albumin 2.3 G/DL (3.4-5.0); Bilirubin,Total 0.8 MG/DL (0.2-1.0); Calcium 6.8 MG/DL (8.5-10.1); Osmolality,Calculated 297.3 MOS/KG (273-304); Potassium 3.2 MMOL/L (3.5-5.1); Total Protein 5.8 G/DL (6.4-8.3)
[2018-07-28 06:03] LABS: Band Neutrophils 2 % (0-10); Hypochromasia 1+; Lymphocytes 9 % (20-55); Ovalocytes Slight; Platelet Estimate Decreased; Segmented Neutrophils 87 % (50-85); Total Cells Counted 100
[2018-07-28] MEDS: CARBIDOPA/LEVODOPA 25-250 MG TABLET PO SCH ×3 (07:51→21:13)
[2018-07-28] MEDS: AMANTADINE 100 MG CAPSULE PO SCH ×2 (09:04→21:13)
[2018-07-28] MEDS: THIAMINE 100 MG TABLET PO SCH (09:05)
[2018-07-28] MEDS: FOLIC ACID 1 MG TABLET PO SCH (09:05)
[2018-07-28] MEDS: MULTIVITAMIN (CENTRUM) TABLET PO SCH (09:05)
[2018-07-28] MEDS ORDERED: MAGNESIUM SULF RIDER 2 GM in PREMIX 1 EACH IV PRN (09:24)
[2018-07-28] MEDS ORDERED: MAGNESIUM SULF RIDER 4 GM in PREMIX 1 EACH IV PRN (09:24)
[2018-07-28] MEDS ORDERED: POTASSIUM CHLORIDE RIDER 10 MEQ in PREMIX 1 EACH IV PRN (09:24)
[2018-07-28] MEDS: POTASSIUM CHLORIDE 20 MEQ/15 ML UDCUP PER TUBE PRN ×4 (10:17→16:24)
[2018-07-28] MEDS: VANCOMYCIN INJ 1,250 MG in SODIUM CHLORIDE 0.9% 250 ML IV SCH ×2 (11:03→21:13)
[2018-07-28] MEDS: SODIUM CHLORIDE 0.45% 1,000 ML IV SCH (12:29)
[2018-07-28] MEDS: LURASIDONE 40 MG TABLET PO SCH (16:24)
[2018-07-28] MEDS: ATORVASTATIN 80 MG TABLET PO SCH (21:13)
[2018-07-29] MEDS: PIPERACILLIN/TAZOBACTAM 3,375 MG in SODIUM CHLORIDE 0.9% 100 ML IV SCH ×3 (00:48→15:20)
[2018-07-29] MEDS: HEPARIN 5,000 UNIT/1 ML VIAL SUBCUT SCH ×3 (01:48→16:59)
[2018-07-29 06:16] LABS: Basophils # 0.1 10*3/uL (0.0-0.2); Basophils % 0.5 % (0.0-0.8); Eosinophils # 0.1 10*3/uL (0.0-0.87); Hemoglobin 10.1 GM/DL (14.0-18.0); Immature Granulocytes % 0.6 %; Immature Granulocytes Absolute 0.09 #; Lymphocytes % 13.9 % (21.2-54.2); Mean Corpuscular HGB Conc 31.6 GM/DL (32-36); Mean Corpuscular Hemoglobin 30 PG (27-34); Mean Corpuscular Volume 95.8 FL (87-102); Mean Platelet Volume 11.6 FL (9.6-12.0); Monocytes % 6.6 % (1.7-12.7); Neutrophils # 11.2 10*3/uL (1.4-7.4); Neutrophils % 77.4 % (38.7-73.9); Platelet Count 105 T/CUMM (130-400); Red Blood Count 3.34 MC/CUMM (3.8-5.5); Red Cell Distribution Width 14.6 % (9.3-17.3); White Blood Count 14.5 T/CUMM (4-12)
[2018-07-29] MEDS: CARBIDOPA/LEVODOPA 25-250 MG TABLET PO SCH ×3 (06:21→21:05)
[2018-07-29] MEDS: SODIUM CHLORIDE 0.45% 1,000 ML IV SCH (06:21)
[2018-07-29 06:38] LABS: Lymphocytes 13 % (20-55); Platelet Estimate Decreased; Polychromasia Few; Segmented Neutrophils 84 % (50-85); Total Cells Counted 100
[2018-07-29 07:01] LABS: Albumin 2.2 G/DL (3.4-5.0); Bilirubin,Total 0.4 MG/DL (0.2-1.0); Calcium 7.6 MG/DL (8.5-10.1); Osmolality,Calculated 287.7 MOS/KG (273-304); Potassium 3.6 MMOL/L (3.5-5.1)
[2018-07-29] MEDS: MULTIVITAMIN (CENTRUM) TABLET PO SCH (08:56)
[2018-07-29] MEDS: THIAMINE 100 MG TABLET PO SCH (08:56)
[2018-07-29] MEDS: AMANTADINE 100 MG CAPSULE PO SCH ×2 (08:56→21:05)
[2018-07-29] MEDS: POTASSIUM CHLORIDE 20 MEQ/15 ML UDCUP PER TUBE PRN ×2 (08:56→10:51)
[2018-07-29] MEDS: FOLIC ACID 1 MG TABLET PO SCH (08:56)
[2018-07-29] MEDS: VANCOMYCIN INJ 1,250 MG in SODIUM CHLORIDE 0.9% 250 ML IV SCH ×2 (10:50→21:03)
[2018-07-29] MEDS: LURASIDONE 40 MG TABLET PO SCH (16:59)
[2018-07-29] MEDS: CARVEDILOL 25 MG TABLET PO SCH (17:00)
[2018-07-29] MEDS: ATORVASTATIN 80 MG TABLET PO SCH (21:05)
[2018-07-30] MEDS: PIPERACILLIN/TAZOBACTAM 3,375 MG in SODIUM CHLORIDE 0.9% 100 ML IV SCH ×3 (00:15→15:05)
[2018-07-30] MEDS: HEPARIN 5,000 UNIT/1 ML VIAL SUBCUT SCH ×2 (03:49→08:49)
[2018-07-30 06:12] LABS: Basophils # 0.1 10*3/uL (0.0-0.2); Basophils % 0.5 % (0.0-0.8); Eosinophils # 0.1 10*3/uL (0.0-0.87); Eosinophils % 1.2 % (0.00-10.9); Hematocrit 34.9 VOL% (42.0-52.0); Hemoglobin 11.2 GM/DL (14.0-18.0); Immature Granulocytes % 0.7 %; Immature Granulocytes Absolute 0.07 #; Lymphocytes # 1.5 10*3/uL (1.4-4.0); Lymphocytes % 14.9 % (21.2-54.2); Mean Corpuscular HGB Conc 32.1 GM/DL (32-36); Mean Corpuscular Hemoglobin 30 PG (27-34); Mean Corpuscular Volume 93.6 FL (87-102); Monocytes # 0.6 10*3/uL (0.11-0.8); Monocytes % 5.8 % (1.7-12.7); Neutrophils # 7.9 10*3/uL (1.4-7.4); Neutrophils % 76.9 % (38.7-73.9); Platelet Count 116 T/CUMM (130-400); Red Blood Count 3.73 MC/CUMM (3.8-5.5); Red Cell Distribution Width 14.2 % (9.3-17.3); White Blood Count 10.3 T/CUMM (4-12)
[2018-07-30 06:36] LABS: Albumin 2.4 G/DL (3.4-5.0); Bilirubin,Total 0.5 MG/DL (0.2-1.0); Calcium 8.5 MG/DL (8.5-10.1); Osmolality,Calculated 284.8 MOS/KG (273-304); Potassium 3.9 MMOL/L (3.5-5.1); Total Protein 6.3 G/DL (6.4-8.3)
[2018-07-30] MEDS: CARVEDILOL 25 MG TABLET PO SCH ×2 (07:26→17:16)
[2018-07-30] MEDS: CARBIDOPA/LEVODOPA 25-250 MG TABLET PO SCH ×3 (07:26→21:51)
[2018-07-30] MEDS: SODIUM CHLORIDE 0.45% 1,000 ML IV SCH (08:46)
[2018-07-30] MEDS: MULTIVITAMIN (CENTRUM) TABLET PO SCH (08:49)
[2018-07-30] MEDS: THIAMINE 100 MG TABLET PO SCH (08:49)
[2018-07-30] MEDS: LISINOPRIL 20 MG TABLET PO SCH (08:49)
[2018-07-30] MEDS: CLOPIDOGREL 75 MG TABLET PO SCH (08:49)
[2018-07-30] MEDS: POTASSIUM CHLORIDE 20 MEQ/15 ML UDCUP PER TUBE PRN (08:49)
[2018-07-30] MEDS: FOLIC ACID 1 MG TABLET PO SCH (08:49)
[2018-07-30] MEDS: AMANTADINE 100 MG CAPSULE PO SCH ×2 (08:49→21:51)
[2018-07-30] MEDS: VANCOMYCIN INJ 1,250 MG in SODIUM CHLORIDE 0.9% 250 ML IV SCH (12:42)
[2018-07-30] MEDS ORDERED: cefTRIAXone 1,000 MG in SYRINGE 1 EACH IV SCH (15:30)
[2018-07-30] MEDS: LURASIDONE 40 MG TABLET PO SCH (17:16)
[2018-07-30] MEDS ORDERED: ENOXAPARIN 40 MG/0.4 ML SYRINGE SUBCUT SCH (21:00)
[2018-07-30] MEDS: ATORVASTATIN 80 MG TABLET PO SCH (21:51)
[2018-07-31 05:28] LABS: Basophils % 0.6 % (0.0-0.8); Eosinophils # 0.1 10*3/uL (0.0-0.87); Eosinophils % 1.8 % (0.00-10.9); Hematocrit 35.6 VOL% (42.0-52.0); Hemoglobin 11.6 GM/DL (14.0-18.0); Immature Granulocytes % 1.5 %; Lymphocytes # 1.9 10*3/uL (1.4-4.0); Lymphocytes % 28.5 % (21.2-54.2); Mean Corpuscular HGB Conc 32.6 GM/DL (32-36); Mean Corpuscular Hemoglobin 30 PG (27-34); Mean Corpuscular Volume 91.5 FL (87-102); Monocytes # 0.8 10*3/uL (0.11-0.8); Monocytes % 11.5 % (1.7-12.7); Neutrophils # 3.8 10*3/uL (1.4-7.4); Neutrophils % 56.1 % (38.7-73.9); Platelet Count 124 T/CUMM (130-400); Red Blood Count 3.89 MC/CUMM (3.8-5.5); Red Cell Distribution Width 13.9 % (9.3-17.3); White Blood Count 6.8 T/CUMM (4-12)
[2018-07-31 05:55] LABS: Calcium 8.7 MG/DL (8.5-10.1)
[2018-07-31 05:56] LABS: Osmolality,Calculated 277.3 MOS/KG (273-304); Potassium 3.5 MMOL/L (3.5-5.1)
[2018-07-31] MEDS: CARVEDILOL 25 MG TABLET PO SCH (06:51)
[2018-07-31] MEDS: CARBIDOPA/LEVODOPA 25-250 MG TABLET PO SCH ×2 (06:51→15:03)
[2018-07-31] MEDS: POTASSIUM CHLORIDE 20 MEQ/15 ML UDCUP PER TUBE PRN (06:54)
[2018-07-31] MEDS: FOLIC ACID 1 MG TABLET PO SCH (09:10)
[2018-07-31] MEDS: CLOPIDOGREL 75 MG TABLET PO SCH (09:10)
[2018-07-31] MEDS: AMANTADINE 100 MG CAPSULE PO SCH (09:10)
[2018-07-31] MEDS: LISINOPRIL 20 MG TABLET PO SCH (09:11)
[2018-07-31] MEDS: THIAMINE 100 MG TABLET PO SCH (09:12)
[2018-07-31] MEDS: MULTIVITAMIN (CENTRUM) TABLET PO SCH (09:12)
[2018-07-31 17:10] VITALS: BP 176/77
== END 2018-07-31 17:00 | DRG 871 ==
LOC: EDUNIT# → EDBD → N.ED 05:37 → N.EDINP 09:02 → SUATTDRO 09:03 → N.5E 09:41
PROVIDERS: ADMIT Internal Medicine Nephrology; ATTEND Internal Medicine